=== PATIENT | male | born 1950 | race Caucasian/White ===

== ENCOUNTER 2024-04-09 16:39 | Emergency (ER) | payer MEDICARE, MEDICAID ==
[~2024-04-09] VITALS: Ht 182.9 cm; Wt 90.9 kg
[~2024-04-09 16:39] MED LIST: DIPH25CA83 IV
[2024-04-09] MEDS: ketorolac tromethamine 15mg/ml inj. IM ONE (17:20)
[2024-04-09] MEDS ORDERED: GABA-530 PO (18:11)
[2024-04-09] MEDS: HYDROcodone/acetaminophen 10/325mg tab PO ONE (18:32)
[2024-04-09 18:43] VITALS: BP 176/98; PULSE 76; RESP 16; TEMP 98.4; O2SAT 99
== END 2024-04-09 18:35 | disposition home or self-care (01) ==
LOC: ER 16:39
DX: G62.9 Polyneuropathy, unspecified (principal); G89.29 Other chronic pain; Z88.0 Allergy status to penicillin; Z88.5 Allergy status to narcotic agent; Z79.899 Other long term (current) drug therapy
CPT/HCPCS: 93970; 96372; 99285; J1885